=== PATIENT | female | born 1960 | race Caucasian/White ===

== ENCOUNTER 2016-06-04 21:29 | Observation (INO) | payer OTHER ==
[~2016-06-04] VITALS: Ht 165.1 cm; Wt 99.9 kg
--- NOTE | 2016-06-04 22:52 | DIAGNOSTIC IMAGING REPORT ---
PROCEDURE: XR CHEST 1 VIEW INDICATION: CHEST PAIN TECHNIQUE: Portable AP view (2205 hours). COMPARISON: None. FINDINGS: Allowing for overlying wires and electrodes, lungs are clear. Heart and mediastinum are normal. Thorax is normal. IMPRESSION: 1. Negative chest.
--- NOTE | 2016-06-05 00:33 | ED CLINICAL REPORT ---
Clinical Report - Physicians/Mid Levels [facility] [address] [place] [place] [address] 06/04/2016 21:31 Patient: ROJELIO ANDERSON Time Seen: 21:37. Arrived- By ambulance. Historian- patient and EMS personnel. HISTORY OF PRESENT ILLNESS Chief Complaint: PALPITATIONS. This started just prior to arrival and is now gone. Onset during exertion. No history of caffeine use prior to onset, decongestants use prior to onset, cocaine use prior to onset or amphetamine use prior to onset. It was abrupt in onset. It is described as a fast and pounding heart beat. She did not feel like might "pass out". She complains of dizziness. The patient has had chest discomfort, difficulty breathing and dizziness. Treatment TIME BROKER: Pre-hospital treatment by EMS. Treated with adenosine prior to arrival. REVIEW OF SYSTEMS No chills, fever, sweats, pedal edema or constipation. No diarrhea, nausea, vomiting or urinary problems. She has had mild calf pain involving the right leg and left leg (chronically). She has had abdominal pain (chronically - "for 20 years" she has a study scheduled at [place] tomorrow to evaluate gastric emptying). PAST HISTORY PCP - Kennedy at the [facility]. Problems: Adjustment Disorder. Hypertension. Diabetes Mellitus. Acid Reflux. Additional Surgeries: Cholecystectomy. . Cyst removal from breast. Medications: Colestid Oral. [place] Thyroid Oral. Lisinopril Oral. NovoLIN 70/30 Subcutaneous. Omeprazole Oral. Allergies: Codeine. CONTRAST DYE. Penicillins. SOCIAL HISTORY Smoker- current status unknown. No alcohol use or drug use. Is a local resident. FAMILY HISTORY Diabetes in first-degree relative (sibling) and grandparent; migraine headache in first-degree relative (sibling) and grandparent. ADDITIONAL NOTES The nursing notes have been reviewed. PHYSICAL EXAM Vital Signs: 06/04/2016 21:34 BP: 157/76. HR: 89. RR: 16. O2 saturation: 98%. Pain level now: 0/10. Have been reviewed. Appearance: Alert. Eyes: Pupils equal, round and reactive to light. ENT: Pharynx normal. Neck: Normal inspection. Neck supple. CVS: Normal heart rate and rhythm. Heart sounds normal. Respiratory: No respiratory distress. Breath sounds normal. Abdomen: Soft and nontender. Bowel sounds normal. No organomegaly. No mass. Back: Normal external inspection. Extremities: Extremities exhibit normal ROM. No calf tenderness. No lower extremity edema. LABS, X-RAYS, AND EKG Laboratory Tests: CBC w Diff: (LINSEY: 06/05/2016 05:28) ( [facility] 06/05/2016 05:35) Final results Test Result Flag Units (Reference) WHITE BLOOD COUNT 6.1 K/uL (4.5-11.5) RED BLOOD COUNT 3.62 L M/uL (4.00-5.20) HEMOGLOBIN 10.3 L gm/dL (12.0-16.0) HEMATOCRIT 30.9 L % (36.0-46.0) MEAN CELL VOLUME 85 fL (80-100) MEAN CORPUSCULAR HGB 29 pg (26-34) MEAN CORPUSCULAR HGB CONC 33 g/dL (31-37) RED CELL DISTRIBUTION WIDTH 15.1 H % (11.6-14.8) PLATELET COUNT 183 K/uL (150-400) NEUTROPHIL % 58.9 % (50-75) LYMPH % 30.2 % (25-40) MONO % 8.1 % (3-14) EOSINOPHIL % 2.1 % (0-4) BASOPHIL % 0.7 % (0-2) BMP: (LINSEY: 06/05/2016 05:28) ( [facility] [place] 06:24) Final results Test Result Flag Units (Reference) GLUCOSE 123 H mg/dL (70-110) BUN 19 H mg/dL (7-18) CREATININE 0.9 mg/dL (0.6-1.3) Estimated GFR >60 mL/min Estimated GFR- >60 mL/min Note: Persistent reduction over 3 months in eGFR<60 mL/min/1.73 m2 defines CKD. Patients with eGFR values>=60 mL/min/1.73 m2 may also have CKD if evidence ofpersistent proteinuria. Additional information may be foundat www.kidney.org. SODIUM 144 mmol/L (136-145) POTASSIUM 3.7 mmol/L (3.5-5.1) CHLORIDE 111 H mmol/L (98-107) CARBON DIOXIDE 23 mmol/L (21-32) CALCIUM 8.5 mg/dL (8.5-10.1) FREE T4 (FREE THYROXINE) 0.92 ng/dL (0.78-4.13) FREE T3 2.7 L pg/mL (2.91-4.70) UA-Culture if indicated: (LINSEY: 06/04/2016 21:38) ( [facility] 06/04/2016 23:23) Final results Test Result Flag Units (Reference) URINE COLOR YELLOW URINE APPEARANCE CLEAR URINE GLUCOSE NEGATIVE (NEGATIVE) URINE BILIRUBIN NEGATIVE (NEGATIVE) URINE KETONE NEGATIVE (NEGATIVE) URINE SPECIFIC GRAVITY 1.010 (1.010-1.030) URINE PH 7.0 (5.0-8.0) URINE PROTEIN TRACE (NEGATIVE) URINE UROBILINOGEN 0.2 EU/dL (0.2-1.0) URINE NITRITE NEGATIVE (NEGATIVE) URINE BLOOD NEGATIVE (NEGATIVE) URINE LEUK ESTERASE TRACE (NEGATIVE) URINE RBC 0-1 rbc/hpf (0-1) URINE WBC 1-3 wbc/hpf (0-1) URINE EPITHELIAL CELLS 0-1 EPI/hpf (0-5) URINE BACTERIA FEW (1+) (NONE SEEN) URINE COMMENT CULTURE INDICATED URINE CULTURES ARE SET-UP BASED ON THE FOLLOWING CRITERIA:POSITIVE NITRITEPOSITIVE LEUKOCYTE ESTERASEGREATER THAN 10 WHITE BLOOD CELLSMODERATE (2+) OR GREATER BACTERIA CBC w Diff: (LINSEY: 06/04/2016 22:00) ( MsgRcvd 06/04/2016 22:19) Final results Test Result Flag Units (Reference) WHITE BLOOD COUNT 5.6 K/uL (4.5-11.5) RED BLOOD COUNT 4.02 M/uL (4.00-5.20) HEMOGLOBIN 11.4 L gm/dL (12.0-16.0) HEMATOCRIT 34.2 L % (36.0-46.0) MEAN CELL VOLUME 85 fL (80-100) MEAN CORPUSCULAR HGB 28 pg (26-34) MEAN CORPUSCULAR HGB CONC 33 g/dL (31-37) RED CELL DISTRIBUTION WIDTH 15.0 H % (11.6-14.8) PLATELET COUNT 184 K/uL (150-400) NEUTROPHIL % 69.5 % (50-75) LYMPH % 22.7 L % (25-40) MONO % 5.7 % (3-14) EOSINOPHIL % 1.4 % (0-4) BASOPHIL % 0.7 % (0-2) PT with INR: (LINSEY: 06/04/2016 22:00) ( [facility] 06/04/2016 22:35) Final results Test Result Flag Units (Reference) INR 0.9 (0.8-1.2) Low Intensity Therapy: INR 1.5-2.0 PT range 18.5-23.1Mod.Intensity Therapy: INR 2.0-3.0 PT range 23.1-31.5High Intensity Therapy: INR 2.5-3.5 PT range 27.4-35.5High Intensity Therapy 2: INR 3.0-4.0 PT range 31.5-39.3 APTT 27 SECONDS (24-34) D-DIMER QUANTITATIVE 0.74 H ug/mLFEU (0.27-0.52) The primary value of this quantitative assay relates toits negative predictive value (i.e. exclusion) of pulmonaryembolism/deep vein thrombosis/DIC.Elevated levels of d-dimer may also occur with:, age, cancer, inflammation, liver disease,post-op, infection, hematoma, coronary disease, peripheralarteriopathy, bleeding disorders and thrombolytic treatment.Results should be correlated with other clinical andradiological data.Testing Methodology: Latex Immunoassay TSH: (LINSEY: 06/04/2016 22:53) ( [facility] 06/04/2016 23:15) Final results Test Result Flag Units (Reference) THYROID STIMULATING HORMONE 0.183 L uIU/mL (0.30-3.74) BNP: (LINSEY: 06/04/2016 22:00) ( [facility] [place]04[place] 22:41) Final results Test Result Flag Units (Reference) B-TYPE NATRIURETIC PEPTIDE 80.8 pg/ml (5-100) CMP: (LINSEY: 06/04/2016 22:00) ( MsgRcvd 06/04/2016 22:34) Final results Test Result Flag Units (Reference) GLUCOSE 202 H mg/dL (70-110) BUN 24 H mg/dL (7-18) CREATININE 1.1 mg/dL (0.6-1.3) Estimated GFR 54.22 mL/min Estimated GFR- >60 mL/min Note: Persistent reduction over 3 months in eGFR<60 mL/min/1.73 m2 defines CKD. Patients with eGFR values>=60 mL/min/1.73 m2 may also have CKD if evidence ofpersistent proteinuria. Additional information may be foundat www.kidney.org. SODIUM 142 mmol/L (136-145) POTASSIUM 3.7 mmol/L (3.5-5.1) CHLORIDE 107 mmol/L (98-107) CARBON DIOXIDE 24 mmol/L (21-32) CALCIUM 8.8 mg/dL (8.5-10.1) TOTAL PROTEIN 7.7 g/dL (6.4-8.2) ALBUMIN 3.5 g/dL (3.3-5.0) BILIRUBIN, TOTAL 0.3 mg/dL (0.0-1.0) ALKALINE PHOSPHATASE 96 U/L (46-116) AST (SGOT) 24 U/L (15-37) ALT (SGPT) 31 U/L (12-78) LIPASE 148 U/L (73-393) AMYLASE 43 U/L (25-115) CPK 112 U/L (24-260) TROPONIN I <0.05 ng/mL (0.00-1.5) TROPONIN REFERENCE RANGE:<0.1 NEGATIVE0.1-1.5 INDETERMINANT>1.5 POSITIVE . PROGRESS AND PROCEDURES Course of Care: given the patient's allergy to contrast dye and elevated d-dimer. We will bring her in for observation and obtain a VQ scan in the morning. Discussed case with on-call health care provider, (Mike). Reviewed test results and need for additional work-up. Agreed upon treatment plan and decision to place in observation. Consult obtained. Dr. Martin. Case discussed. Phone consult only. Patient/family counseled. Old medical records ordered. Disposition: Admitted. Observation. CLINICAL IMPRESSION Paroxysmal supraventricular tachycardia. Abnormal tests: (elevated d-dimer). Hypothyroidism (with apparent supratherapeutic dosing of her [place] thyroid). (Electronically signed by Joseph Chapin MD 06/05/2016 8:36)
--- NOTE | 2016-06-05 00:33 | ED NURSING NOTES ---
Clinical Report - Nurses [facility] [address] [place] [address] 06/04/2016 21:31 Patient: ROJELIO ANDERSON TRIAGE Triage time 21:34. Acuity: LEVEL 2. Chief Complaint: CHEST PAIN. Alert. --21:42 Janet Mirza R.N. 21:34 06/04/16. BP: 157/76. HR: 89. RR: 16. O2 saturation: 98% on room air. Pain level now: 0/10. --21:42 Janet Mirza R.N. Weight: 95.7 kg stated. Height/Length: 65 inches Per Patient. BMI: 35.2. --21:40 Janet Mirza R.N. Medications Lisinopril Oral. NovoLIN 70/30 Subcutaneous. Omeprazole Oral. --21:40 Janet Mirza R.N. [place] Thyroid Oral. --21:40 Janet Mirza R.N. Colestid Oral. --21:41 Janet Mirza R.N. Allergies Codeine. Penicillins. --21:40 Janet Mirza R.N. History Arrived by EMS. Historian: patient. Primary physician (Kennedy ([facility])). SOCIAL HX: Never smoker. No alcohol use or drug use. NUTRITIONAL RISK ASSESSMENT: The nutritional risk assessment revealed no deficiencies. FUNCTIONAL ASSESSMENT: Functional assessment: no impairments noted. --21:42 Janet Mirza R.N. PROBLEMS: Adjustment Disorder. Hypertension. Diabetes Mellitus. Acid Reflux. --21:41 Janet Mirza R.N. ADDITIONAL SURGERIES: Cholecystectomy. . Cyst removal from breast. --21:41 Janet Mirza R.N. Interventions ID band on patient. To treatment room. --21:42 Janet Mirza R.N. PHYSICAL ASSESSMENT To room via stretcher. Patient gowned. GENERAL / NEURO / PSYCH: Alert. Oriented X 4. Appears anxious. HEENT: Mucous membranes are pink. RESPIRATORY: Respirations not labored. CVS: Capillary refill less than 2 seconds. SKIN: Skin is warm and dry. --21:42 Janet Mirza R.N. NURSING PROGRESS NOTES Head of bed elevated. Two patient identifiers checked. Call light placed in reach. Side rails up x 2. Bed placed in lowest position. Brakes of bed on. --21:42 Janet Mirza R.N. bacteriologist fishery, pulse oximeter and NIBP monitor placed on patient; monitor alarms on. --21:43 Janet Mirza R.N. Patient ready for evaluation- chart flagged. --21:43 Janet Mirza R.N. 21:45 06/04/2016 Site #1 started prior to arrival by EMS via IV in the right antecubital space with an 20g angiocath (started DOUBLE END SEWER. 1000ml NS hanging upon arrival to ED, aprox 250ml infused upon arrival. infusion stopped until further orders from EDMD.). --21:46 Janet Mirza R.N. EKG time: (2146 PM). EKG was ordered, performed by a tech and shown to the ED physician. --21:52 Misty Will 21:40 06/04/2016 Aspirin PO Tablets 325 mg given. Allergies verified and confirmed 5 rights. --22:48 Janet Mirza R.N. 22:51 06/04/16. BP: 150/66. HR: 85. RR: 15. O2 saturation: 100% on nasal cannula at 2 liters/minute. Alan-Overton pain scale: 4/10. --22:51 Janet Mirza R.N. Patient ID band checked for patient name and birthdate: patient confirmed. Clean catch urine collected with return of yellow-colored clear urine; sample sent to lab. Specimen labeled in the presence of the patient. --23:11 Janet Mirza R.N. 01:45 06/05/16. BP: 151/67 taken on the right arm, while sitting. HR: 66. RR: 16. O2 saturation: 100%. Temp: 98.2 F (oral). --01:53 Misty Will Finger stick glucose: 0300: 127 mg/dL; performed by [facility]. --03:01 Misty Will 03:05 06/05/16. BP: 134/61. HR: 72. RR: 16. O2 saturation: 100%. Pain level now: 0/10. --03:05 Janet Mirza R.N. 03:21 06/05/2016 Lovenox (Enoxaparin Sodium) Subcutaneous 100 mg given. Given in the right abdomen. Allergies verified and confirmed 5 rights. --03:24 Janet Mirza R.N. 04:10- STOP time for protonix. --04:12 Janet Mirza R.N. DISPOSITION / DISCHARGE Report was given to a nurse via a phone call. Report included patient's care, treatment, medications, reviewed medication reconcilliation, and condition (including any recent changes or anticipated changes). All questions were answered. (To WINSOME Pascual). --03:41 Janet Mirza R.N. 03:42 06/05/16. BP: 157/69. HR: 68. RR: 15. O2 saturation: 100%. Pain level now: 0/10. --03:42 Janet Mirza R.N. 03:43 06/05/2016 Site #[address] upon admission. Flushed with 10 mL saline. --03:43 Janet Mirza R.N. 03:55 06/05/2016 PROTONIX 40MG (Pantoprazole Sodium) IVP 40 mg given diluted in NS 50mL over 15 minute(s) via site #1. Allergies verified and confirmed 5 rights. IV patency established. IV site checked: no pain, redness, or swelling. IV flushed thoroughly pre- and post-medication administration. IVP given by RN. --03:55 Janet Mirza R.N. Transported via wheelchair by nurse with IV. --04:13 Janet Mirza R.N. Departure time: 04:13. --04:13 Janet Mirza R.N. Locked/Released at 06/05/2016 4:47 by Janet Mirza R.N.
--- NOTE | 2016-06-05 00:33 | ED ORDER SUMMARY ---
..... Patient: ROJELIO ANDERSON OrderSheet [facility] VisitID: [id number] [address] [place] [address] 56y, F Registration Date/Time: 06/04/2016 ORDER SHEET Weight: 95.7 kg (stated) Allergies: Codeine, Penicillins, CONTRAST DYE GENERAL ORDERS: Chest 1V Urgent (21:37 06/04/2016 Gi BENÍTEZ) (Ack 21:40 CHaggiuliana ER Clinical Research Administrator) (22:08 MCampbell) Therapist Speech (Continuous) (21:37 06/04/2016 Gi BENÍTEZ) (21:43 RCollier R.N.) CBC w Diff Urgent (21:38 06/04/2016 Gi BENÍTEZ) (Ack 21:40 CHaggiuliana ER Clinical Research Administrator) (22:47 RCollier R.N.) CMP Urgent (21:38 06/04/2016 Gi BENÍTEZ) (Ack 21:40 Moshe ER Clinical Research Administrator) (22:47 RCollier R.N.) UA-Culture if indicated Urgent (21:38 06/04/2016 Gi BENÍTEZ) (Ack 21:40 Moshe ER Clinical Research Administrator) (23:11 RCollier R.N.) PT with INR Urgent (21:38 06/04/2016 iG BENÍTEZ) (Ack 21:40 Moshe ER Clinical Research Administrator) (22:47 RCollier R.N.) PTT Urgent (21:38 06/04/2016 Gi BENÍTEZ) (Ack 21:40 CHaggiuliana ER Clinical Research Administrator) (22:47 RCollier R.N.) D-Dimer Urgent (21:38 06/04/2016 Gi BENÍTEZ) (Ack 21:40 Moshe ER Clinical Research Administrator) (22:47 RCollier R.N.) Lipase Urgent (21:38 06/04/2016 Gi BENÍTEZ) (Ack 21:40 Moshe ER Clinical Research Administrator) (22:48 RCollier R.N.) Amylase Urgent (21:38 06/04/2016 Gi BENÍTEZ) (Ack 21:40 CHaggiuliana ER Clinical Research Administrator) (22:48 RCollier R.N.) CPK Urgent (21:38 06/04/2016 Gi BENÍTEZ) (Ack 21:40 Moshe ER Clinical Research Administrator) (22:48 RCollier R.N.) Troponin-I Urgent (21:38 06/04/2016 Gi BENÍTEZ) (Ack 21:40 Moshe ER Clinical Research Administrator) (22:48 RCollier R.N.) BNP Urgent (21:38 06/04/2016 Gi BENÍTEZ) (Ack 21:40 Moshe ER Clinical Research Administrator) (22:48 RCollier R.N.) Oxygen (2 L/min) (NC) (21:38 06/04/2016 Gi BENÍTEZ) (21:43 RCollier R.N.) Pulse oximeter (21:38 06/04/2016 Gi BENÍTEZ) (21:43 RCollier R.N.) EKG - ER Stat (21:38 06/04/2016 Gi BENÍTEZ) (Ack 21:40 Moshe ER Clinical Research Administrator) (21:43 RCollier R.N.) TSH Urgent (22:43 06/04/2016 Gi BENÍTEZ) (Ack 22:47 Moshe ER Clinical Research Administrator) (22:48 RCollier R.N.) MEDICATION ORDERS: Aspirin PO 325 mg (NOW) (21:37 06/04/2016 Gi BENÍTEZ) (Ack 21:43 RCollier R.N.) (22:48 RCollier R.N.) Lovenox Subcut 1 mg/kg (HIGH ALERT MEDICATION, NOW) (03:11 06/05/2016 Gi BENÍTEZ) (Ack 3:14 RCollier R.N.) (3:24 RCollier R.N.) Pepcid PO 20 mg (NOW) (03:45 06/05/2016 RCollier R.N. verbal order read back to Gi BENÍTEZ) (Ack 3:45 RCollier R.N.) (Cancelled: Other3:46 Gi BENÍTEZ) IV FLUIDS: IV Saline Lock (21:38 06/04/2016 Gi BENÍTEZ) (Ack 21:43 RCollier R.N.) Protonix IVP 40mg 40 mg (Mix in NS 10ml over 2min) (03:46 06/05/2016 Gi BENÍTEZ) (3:55 RCollier R.N.) ORDER SHEET NOTES: [Electronically signed by Janet Mirza R.N. (04:47 06/05/2016)] [Electronically signed by Joseph Chapin MD (08:36 06/05/2016)] [Electronically locked/signed by Janet Mirza R.N. (04:47 06/05/2016)]
--- NOTE | 2016-06-05 00:33 | ED NURSING NOTES ---
Clinical Report - Nurses [facility] [address] [place] [address] 06/04/2016 21:31 Patient: ROJELIO ANDERSON TRIAGE Triage time 21:34. Acuity: LEVEL 2. Chief Complaint: CHEST PAIN. Alert. --21:42 Janet Mirza R.N. 21:34 06/04/16. BP: 157/76. HR: 89. RR: 16. O2 saturation: 98% on room air. Pain level now: 0/10. --21:42 Janet Mirza R.N. Weight: 95.7 kg stated. Height/Length: 65 inches Per Patient. BMI: 35.2. --21:40 Janet Mirza R.N. Medications Lisinopril Oral. NovoLIN 70/30 Subcutaneous. Omeprazole Oral. --21:40 Janet Mirza R.N. [place] Thyroid Oral. --21:40 Janet Mirza R.N. Colestid Oral. --21:41 Janet Mirza R.N. Allergies Codeine. Penicillins. --21:40 Jante Mirza R.N. History Arrived by EMS. Historian: patient. Primary physician (Kennedy ([facility])). SOCIAL HX: Never smoker. No alcohol use or drug use. NUTRITIONAL RISK ASSESSMENT: The nutritional risk assessment revealed no deficiencies. FUNCTIONAL ASSESSMENT: Functional assessment: no impairments noted. --21:42 Janet Mirza R.N. PROBLEMS: Adjustment Disorder. Hypertension. Diabetes Mellitus. Acid Reflux. --21:41 Janet Mirza R.N. ADDITIONAL SURGERIES: Cholecystectomy. . Cyst removal from breast. --21:41 Janet Mirza R.N. Interventions ID band on patient. To treatment room. --21:42 Janet Mirza R.N. PHYSICAL ASSESSMENT To room via stretcher. Patient gowned. GENERAL / NEURO / PSYCH: Alert. Oriented X 4. Appears anxious. HEENT: Mucous membranes are pink. RESPIRATORY: Respirations not labored. CVS: Capillary refill less than 2 seconds. SKIN: Skin is warm and dry. --21:42 Janet Mirza R.N. NURSING PROGRESS NOTES Head of bed elevated. Two patient identifiers checked. Call light placed in reach. Side rails up x 2. Bed placed in lowest position. Brakes of bed on. --21:42 Janet Mirza R.N. sock boarder, pulse oximeter and NIBP monitor placed on patient; monitor alarms on. --21:43 Janet Mirza R.N. Patient ready for evaluation- chart flagged. --21:43 Janet Mirza R.N. 21:45 06/04/2016 Site #1 started prior to arrival by EMS via IV in the right antecubital space with an 20g angiocath (started RETAIL CLERK. 1000ml NS hanging upon arrival to ED, aprox 250ml infused upon arrival. infusion stopped until further orders from EDMD.). --21:46 Janet Mirza R.N. EKG time: (2146 PM). EKG was ordered, performed by a tech and shown to the ED physician. --21:52 Misty Will 21:40 06/04/2016 Aspirin PO Tablets 325 mg given. Allergies verified and confirmed 5 rights. --22:48 Janet Mirza R.N. 22:51 06/04/16. BP: 150/66. HR: 85. RR: 15. O2 saturation: 100% on nasal cannula at 2 liters/minute. Alan-Overton pain scale: 4/10. --22:51 Janet Mirza R.N. Patient ID band checked for patient name and birthdate: patient confirmed. Clean catch urine collected with return of yellow-colored clear urine; sample sent to lab. Specimen labeled in the presence of the patient. --23:11 Janet Mirza R.N. 01:45 06/05/16. BP: 151/67 taken on the right arm, while sitting. HR: 66. RR: 16. O2 saturation: 100%. Temp: 98.2 F (oral). --01:53 Misty Will Finger stick glucose: 0300: 127 mg/dL; performed by [facility]. --03:01 Misty Will 03:05 06/05/16. BP: 134/61. HR: 72. RR: 16. O2 saturation: 100%. Pain level now: 0/10. --03:05 Janet Mirza R.N. 03:21 06/05/2016 Lovenox (Enoxaparin Sodium) Subcutaneous 100 mg given. Given in the right abdomen. Allergies verified and confirmed 5 rights. --03:24 Janet Mirza R.N. 04:10- STOP time for protonix. --04:12 Janet Mirza R.N. DISPOSITION / DISCHARGE Report was given to a nurse via a phone call. Report included patient's care, treatment, medications, reviewed medication reconcilliation, and condition (including any recent changes or anticipated changes). All questions were answered. (To WINSOME Pascual). --03:41 Janet Mirza R.N. 03:42 06/05/16. BP: 157/69. HR: 68. RR: 15. O2 saturation: 100%. Pain level now: 0/10. --03:42 Janet Mirza R.N. 03:43 06/05/2016 Site #[address] upon admission. Flushed with 10 mL saline. --03:43 Janet Mirza R.N. 03:55 06/05/2016 PROTONIX 40MG (Pantoprazole Sodium) IVP 40 mg given diluted in NS 50mL over 15 minute(s) via site #1. Allergies verified and confirmed 5 rights. IV patency established. IV site checked: no pain, redness, or swelling. IV flushed thoroughly pre- and post-medication administration. IVP given by RN. --03:55 Janet Mirza R.N. Transported via wheelchair by nurse with IV. --04:13 Janet Mirza R.N. Departure time: 04:13. --04:13 Janet Mirza R.N. Locked/Released at 06/05/2016 4:47 by Janet Mirza R.N.
--- NOTE | 2016-06-05 00:33 | ED ORDER SUMMARY ---
..... Patient: ROJELIO ANDERSON OrderSheet [facility] VisitID: [id number] [address] [place] [address] 56y, F Registration Date/Time: 06/04/2016 ORDER SHEET Weight: 95.7 kg (stated) Allergies: Codeine, Penicillins, CONTRAST DYE GENERAL ORDERS: Chest 1V Urgent (21:37 06/04/2016 Gi BENÍTEZ) (Ack 21:40 CHaggiuliana ER Pharmacy Salesperson) (22:08 MCampbell) Plant Health Manager (Continuous) (21:37 06/04/2016 Gi BENÍTEZ) (21:43 RCollier R.N.) CBC w Diff Urgent (21:38 06/04/2016 Gi BENÍTEZ) (Ack 21:40 CHaggiuliana ER Pharmacy Salesperson) (22:47 RCollier R.N.) CMP Urgent (21:38 06/04/2016 Gi BENÍTEZ) (Ack 21:40 Moshe ER Pharmacy Salesperson) (22:47 RCollier R.N.) UA-Culture if indicated Urgent (21:38 06/04/2016 Gi BENÍTEZ) (Ack 21:40 Moshe ER Pharmacy Salesperson) (23:11 RCollier R.N.) PT with INR Urgent (21:38 06/04/2016 Gi BENÍTEZ) (Ack 21:40 Moshe ER Pharmacy Salesperson) (22:47 RCollier R.N.) PTT Urgent (21:38 06/04/2016 Gi BENÍTEZ) (Ack 21:40 CHaggiuliana ER Pharmacy Salesperson) (22:47 RCollier R.N.) D-Dimer Urgent (21:38 06/04/2016 Gi BENÍTEZ) (Ack 21:40 Moshe ER Pharmacy Salesperson) (22:47 RCollier R.N.) Lipase Urgent (21:38 06/04/2016 Gi BENÍTEZ) (Ack 21:40 Moshe ER Pharmacy Salesperson) (22:48 RCollier R.N.) Amylase Urgent (21:38 06/04/2016 Gi BENÍTEZ) (Ack 21:40 CHaggiuliana ER Pharmacy Salesperson) (22:48 RCollier R.N.) CPK Urgent (21:38 06/04/2016 Gi BENÍTEZ) (Ack 21:40 Moshe ER Pharmacy Salesperson) (22:48 RCollier R.N.) Troponin-I Urgent (21:38 06/04/2016 Gi BENÍTEZ) (Ack 21:40 Moshe ER Pharmacy Salesperson) (22:48 RCollier R.N.) BNP Urgent (21:38 06/04/2016 Gi BENÍTEZ) (Ack 21:40 Moshe ER Pharmacy Salesperson) (22:48 RCollier R.N.) Oxygen (2 L/min) (NC) (21:38 06/04/2016 Gi BENÍTEZ) (21:43 RCollier R.N.) Pulse oximeter (21:38 06/04/2016 Gi BENÍTEZ) (21:43 RCollier R.N.) EKG - ER Stat (21:38 06/04/2016 Gi BENÍTEZ) (Ack 21:40 Moshe ER Pharmacy Salesperson) (21:43 RCollier R.N.) TSH Urgent (22:43 06/04/2016 Gi BENÍTEZ) (Ack 22:47 Moshe ER Pharmacy Salesperson) (22:48 RCollier R.N.) MEDICATION ORDERS: Aspirin PO 325 mg (NOW) (21:37 06/04/2016 Gi BENÍTEZ) (Ack 21:43 RCollier R.N.) (22:48 RCollier R.N.) Lovenox Subcut 1 mg/kg (HIGH ALERT MEDICATION, NOW) (03:11 06/05/2016 Gi BENÍTEZ) (Ack 3:14 RCollier R.N.) (3:24 RCollier R.N.) Pepcid PO 20 mg (NOW) (03:45 06/05/2016 RCollier R.N. verbal order read back to Gi BENÍTEZ) (Ack 3:45 RCollier R.N.) (Cancelled: Other3:46 Gi BENÍTEZ) IV FLUIDS: IV Saline Lock (21:38 06/04/2016 Gi BENÍTEZ) (Ack 21:43 RCollier R.N.) Protonix IVP 40mg 40 mg (Mix in NS 10ml over 2min) (03:46 06/05/2016 Gi BENÍTEZ) (3:55 RCollier R.N.) ORDER SHEET NOTES: [Electronically signed by Janet Mirza R.N. (04:47 06/05/2016)] [Electronically signed by Joseph Chapin MD (08:36 06/05/2016)] [Electronically locked/signed by Janet Mirza R.N. (04:47 06/05/2016)]
--- NOTE | 2016-06-05 00:33 | ED CLINICAL REPORT ---
Clinical Report - Physicians/Mid Levels [facility] [address] [place] [address] 06/04/2016 21:31 Patient: ROJELIO ANDERSON Time Seen: 21:37. Arrived- By ambulance. Historian- patient and EMS personnel. HISTORY OF PRESENT ILLNESS Chief Complaint: PALPITATIONS. This started just prior to arrival and is now gone. Onset during exertion. No history of caffeine use prior to onset, decongestants use prior to onset, cocaine use prior to onset or amphetamine use prior to onset. It was abrupt in onset. It is described as a fast and pounding heart beat. She did not feel like might "pass out". She complains of dizziness. The patient has had chest discomfort, difficulty breathing and dizziness. Treatment BASKETBALL REFEREE: Pre-hospital treatment by EMS. Treated with adenosine prior to arrival. REVIEW OF SYSTEMS No chills, fever, sweats, pedal edema or constipation. No diarrhea, nausea, vomiting or urinary problems. She has had mild calf pain involving the right leg and left leg (chronically). She has had abdominal pain (chronically - "for 20 years" she has a study scheduled at [place] tomorrow to evaluate gastric emptying). PAST HISTORY PCP - Kennedy at the [facility] [facility]. Problems: Adjustment Disorder. Hypertension. Diabetes Mellitus. Acid Reflux. Additional Surgeries: Cholecystectomy. . Cyst removal from breast. Medications: Colestid Oral. [place] Thyroid Oral. Lisinopril Oral. NovoLIN 70/30 Subcutaneous. Omeprazole Oral. Allergies: Codeine. CONTRAST DYE. Penicillins. SOCIAL HISTORY Smoker- current status unknown. No alcohol use or drug use. Is a local resident. FAMILY HISTORY Diabetes in first-degree relative (sibling) and grandparent; migraine headache in first-degree relative (sibling) and grandparent. ADDITIONAL NOTES The nursing notes have been reviewed. PHYSICAL EXAM Vital Signs: 06/04/2016 21:34 BP: 157/76. HR: 89. RR: 16. O2 saturation: 98%. Pain level now: 0/10. Have been reviewed. Appearance: Alert. Eyes: Pupils equal, round and reactive to light. ENT: Pharynx normal. Neck: Normal inspection. Neck supple. CVS: Normal heart rate and rhythm. Heart sounds normal. Respiratory: No respiratory distress. Breath sounds normal. Abdomen: Soft and nontender. Bowel sounds normal. No organomegaly. No mass. Back: Normal external inspection. Extremities: Extremities exhibit normal ROM. No calf tenderness. No lower extremity edema. LABS, X-RAYS, AND EKG Laboratory Tests: CBC w Diff: (LINSEY: 06/05/2016 05:28) ( [facility] [place] 06/05/2016 05:35) Final results Test Result Flag Units (Reference) WHITE BLOOD COUNT 6.1 K/uL (4.5-11.5) RED BLOOD COUNT 3.62 L M/uL (4.00-5.20) HEMOGLOBIN 10.3 L gm/dL (12.0-16.0) HEMATOCRIT 30.9 L % (36.0-46.0) MEAN CELL VOLUME 85 fL (80-100) MEAN CORPUSCULAR HGB 29 pg (26-34) MEAN CORPUSCULAR HGB CONC 33 g/dL (31-37) RED CELL DISTRIBUTION WIDTH 15.1 H % (11.6-14.8) PLATELET COUNT 183 K/uL (150-400) NEUTROPHIL % 58.9 % (50-75) LYMPH % 30.2 % (25-40) MONO % 8.1 % (3-14) EOSINOPHIL % 2.1 % (0-4) BASOPHIL % 0.7 % (0-2) BMP: (LINSEY: 06/05/2016 05:28) ( [facility] Final results Test Result Flag Units (Reference) GLUCOSE 123 H mg/dL (70-110) BUN 19 H mg/dL (7-18) CREATININE 0.9 mg/dL (0.6-1.3) Estimated GFR >60 mL/min Estimated GFR- >60 mL/min Note: Persistent reduction over 3 months in eGFR<60 mL/min/1.73 m2 defines CKD. Patients with eGFR values>=60 mL/min/1.73 m2 may also have CKD if evidence ofpersistent proteinuria. Additional information may be foundat www.kidney.org. SODIUM 144 mmol/L (136-145) POTASSIUM 3.7 mmol/L (3.5-5.1) CHLORIDE 111 H mmol/L (98-107) CARBON DIOXIDE 23 mmol/L (21-32) CALCIUM 8.5 mg/dL (8.5-10.1) FREE T4 (FREE THYROXINE) 0.92 ng/dL (0.78-4.13) FREE T3 2.7 L pg/mL (2.91-4.70) UA-Culture if indicated: (LINSEY: 06/04/2016 21:38) ( MsgRcvd 06/04/2016 23:23) Final results Test Result Flag Units (Reference) URINE COLOR YELLOW URINE APPEARANCE CLEAR URINE GLUCOSE NEGATIVE (NEGATIVE) URINE BILIRUBIN NEGATIVE (NEGATIVE) URINE KETONE NEGATIVE (NEGATIVE) URINE SPECIFIC GRAVITY 1.010 (1.010-1.030) URINE PH 7.0 (5.0-8.0) URINE PROTEIN TRACE (NEGATIVE) URINE UROBILINOGEN 0.2 EU/dL (0.2-1.0) URINE NITRITE NEGATIVE (NEGATIVE) URINE BLOOD NEGATIVE (NEGATIVE) URINE LEUK ESTERASE TRACE (NEGATIVE) URINE RBC 0-1 rbc/hpf (0-1) URINE WBC 1-3 wbc/hpf (0-1) URINE EPITHELIAL CELLS 0-1 EPI/hpf (0-5) URINE BACTERIA FEW (1+) (NONE SEEN) URINE COMMENT CULTURE INDICATED URINE CULTURES ARE SET-UP BASED ON THE FOLLOWING CRITERIA:POSITIVE NITRITEPOSITIVE LEUKOCYTE ESTERASEGREATER THAN 10 WHITE BLOOD CELLSMODERATE (2+) OR GREATER BACTERIA CBC w Diff: (LINSEY: 06/04/2016 22:00) ( MsgRcvd 06/04/2016 22:19) Final results Test Result Flag Units (Reference) WHITE BLOOD COUNT 5.6 K/uL (4.5-11.5) RED BLOOD COUNT 4.02 M/uL (4.00-5.20) HEMOGLOBIN 11.4 L gm/dL (12.0-16.0) HEMATOCRIT 34.2 L % (36.0-46.0) MEAN CELL VOLUME 85 fL (80-100) MEAN CORPUSCULAR HGB 28 pg (26-34) MEAN CORPUSCULAR HGB CONC 33 g/dL (31-37) RED CELL DISTRIBUTION WIDTH 15.0 H % (11.6-14.8) PLATELET COUNT 184 K/uL (150-400) NEUTROPHIL % 69.5 % (50-75) LYMPH % 22.7 L % (25-40) MONO % 5.7 % (3-14) EOSINOPHIL % 1.4 % (0-4) BASOPHIL % 0.7 % (0-2) PT with INR: (LINSEY: 06/04/2016 22:00) ( [facility] 06/04/2016 22:35) Final results Test Result Flag Units (Reference) INR 0.9 (0.8-1.2) Low Intensity Therapy: INR 1.5-2.0 PT range 18.5-23.1Mod.Intensity Therapy: INR 2.0-3.0 PT range 23.1-31.5High Intensity Therapy: INR 2.5-3.5 PT range 27.4-35.5High Intensity Therapy 2: INR 3.0-4.0 PT range 31.5-39.3 APTT 27 SECONDS (24-34) D-DIMER QUANTITATIVE 0.74 H ug/mLFEU (0.27-0.52) The primary value of this quantitative assay relates toits negative predictive value (i.e. exclusion) of pulmonaryembolism/deep vein thrombosis/DIC.Elevated levels of d-dimer may also occur with:, age, cancer, inflammation, liver disease,post-op, infection, hematoma, coronary disease, peripheralarteriopathy, bleeding disorders and thrombolytic treatment.Results should be correlated with other clinical andradiological data.Testing Methodology: Latex Immunoassay TSH: (LINSEY: 06/04/2016 22:53) ( [facility] 06/04/2016 23:15) Final results Test Result Flag Units (Reference) THYROID STIMULATING HORMONE 0.183 L uIU/mL (0.30-3.74) BNP: (LINSEY: 06/04/2016 22:00) ( [facility] Final results Test Result Flag Units (Reference) B-TYPE NATRIURETIC PEPTIDE 80.8 pg/ml (5-100) CMP: (LINSEY: 06/04/2016 22:00) ( MsgRcvd 06/04/2016 22:34) Final results Test Result Flag Units (Reference) GLUCOSE 202 H mg/dL (70-110) BUN 24 H mg/dL (7-18) CREATININE 1.1 mg/dL (0.6-1.3) Estimated GFR 54.22 mL/min Estimated GFR- >60 mL/min Note: Persistent reduction over 3 months in eGFR<60 mL/min/1.73 m2 defines CKD. Patients with eGFR values>=60 mL/min/1.73 m2 may also have CKD if evidence ofpersistent proteinuria. Additional information may be foundat [email or web address]. SODIUM 142 mmol/L (136-145) POTASSIUM 3.7 mmol/L (3.5-5.1) CHLORIDE 107 mmol/L (98-107) CARBON DIOXIDE 24 mmol/L (21-32) CALCIUM 8.8 mg/dL (8.5-10.1) TOTAL PROTEIN 7.7 g/dL (6.4-8.2) ALBUMIN 3.5 g/dL (3.3-5.0) BILIRUBIN, TOTAL 0.3 mg/dL (0.0-1.0) ALKALINE PHOSPHATASE 96 U/L (46-116) AST (SGOT) 24 U/L (15-37) ALT (SGPT) 31 U/L (12-78) LIPASE 148 U/L (73-393) AMYLASE 43 U/L (25-115) CPK 112 U/L (24-260) TROPONIN I <0.05 ng/mL (0.00-1.5) TROPONIN REFERENCE RANGE:<0.1 NEGATIVE0.1-1.5 INDETERMINANT>1.5 POSITIVE . PROGRESS AND PROCEDURES Course of Care: given the patient's allergy to contrast dye and elevated d-dimer. We will bring her in for observation and obtain a VQ scan in the morning. Discussed case with on-call health care provider, (Mike). Reviewed test results and need for additional work-up. Agreed upon treatment plan and decision to place in observation. Consult obtained. Dr. Martin. Case discussed. Phone consult only. Patient/family counseled. Old medical records ordered. Disposition: Admitted. Observation. CLINICAL IMPRESSION Paroxysmal supraventricular tachycardia. Abnormal tests: (elevated d-dimer). Hypothyroidism (with apparent supratherapeutic dosing of her [place] thyroid). (Electronically signed by Joseph Chapin MD 06/05/2016 8:36)
--- NOTE | 2016-06-05 03:37 | HISTORY AND PHYSICAL ---
ADMITTED: 06/05/2016 PRIMARY CARE PHYSICIAN: Janae Medina MD CHIEF COMPLAINT: 1. Palpitations, chest pain HISTORY OF PRESENT ILLNESS: This is a 56-year-old female with history of type 2 diabetes, hypertension, hypothyroidism and GERD, presenting to the emergency department via EMS with complaints of palpitation and chest pain. The patient states that in the middle of the night she had racing heart, had gotten up and gotten something to drink, walked around and it seemed to resolve on its own. She has had several of these episodes previously; however, they felt very different than the one she had late this evening. The patient again woke up and had very sudden onset of severe palpitations and chest pain associated with shortness of breath, an ambulance was called and the ambulance had found her to in SVT at 235 beats per minute. They gave adenosine 12 mg and it put her into a sinus rhythm at a normal rate. The patient was then transferred to the emergency department. MEDICAL/SURGICAL HISTORY: Past medical history: Type 2 diabetes, hypertension, hypothyroidism, GERD. She has had a , open cholecystectomy, and a breast biopsy. MEDICATIONS: 1. Lisinopril 10 mg p.o. daily. 2. [place] thyroid 90 mcg p.o. daily. 3. Novolin 70/30, 15 units subcutaneous b.i.d. 4. Omeprazole 20 mg p.o. b.i.d. p.r.n. 5. Colace. 6. Mag Citrate. 7. Bisphosphonates. 8. Vitamin B, C, D and E. 9. Enzymes. 10. Aloe Vera juice. 11. DGL. 12. Tums. ALLERGIES: 1. CODEINE. 2. PENICILLIN. SOCIAL HISTORY: The patient is . She denies any alcohol or drug use. She quit smoking in 2009 after smoking for approximately 20 years at a rate of 1 pack per day. FAMILY HISTORY: Brother and grandmother with stomach cancer. Grandmother with colon polyps. Uncle with Crohn disease. Daughter with endometriosis and diabetes, and another brother and grandmother with type 2 diabetes. REVIEW OF SYSTEMS: A full 12-point review of systems was negative except as per HPI, and chronic blurry vision, a chronic cough, which she attributes to her lisinopril, chronic intermittent abdominal pain with diarrhea and constipation, nausea and vomiting, chronic nocturia and chronic leg cramps. PHYSICAL EXAMINATION: VITAL SIGNS: Blood pressure is 140/64, pulse is 77, respiration rate is 16, O2 saturation is 99% on room air. GENERAL: This is a healthy-appearing female sitting in bed in no apparent distress. HEENT: Head is atraumatic, normocephalic. Pupils are equal, round, and reactive to light with accommodation bilaterally. Extraocular muscles are intact bilaterally. Tympanic membranes are nonerythematous without exudates with cones of light bilaterally. Oropharynx is nonerythematous without exudates and moist. Trachea is midline. NECK: There is no JVD. HEART: S1, S2, regular rate and rhythm. No S3, S4, murmurs, gallops, or rubs. LUNGS: Clear to auscultation bilaterally. ABDOMEN: Soft, nontender, nondistended without hepatosplenomegaly or masses. Bowel sounds are active. EXTREMITIES: There is no peripheral edema. LAB/IMAGING: Laboratories: Sodium is 142, potassium 3.7, chloride 107, bicarb 24, BUN of 24, creatinine of 1.1, glucose of 202, calcium of 8.8, total protein of 7.7. Albumin of 0.5, total bilirubin 0.3, alk phos of 96, AST of 24, ALT of 31, lipase of 148, amylase of 43. TSH is 0.183. BNP of 0.08. CPK of 112. Troponin is less than 0.05. UA is negative. White blood cell count of 5.6, hemoglobin of 11.4, hematocrit of 34.2, and platelets of 184,000. D-dimer is 0.74. INR is 0.9. Other studies: Chest x-ray is normal. IMPRESSION: 1. This is a 56-year-old female with a history of type 2 diabetes, hypertension , hypothyroidism, and gastroesophageal reflux disease, presenting to the emergency department with complaints of palpitations, chest pain and shortness of breath secondary to supraventricular tachycardia at 235 beats per minute, possibly from iatrogenic hyperthyroidism versus supraventricular tachycardia. The emergency department was also concerned because D-dimer is elevated and they recommended ruling out a pulmonary embolism with imaging; however, patient is ALLERGIC TO CT SCAN DYE and therefore, a V/Q scan will be done in the morning. PLAN: 1. Cardiac: Supraventricular tachycardia. The emergency department had spoken with Dr. Martin from Cardiology, who recommended metoprolol and aspirin. We will continue this as an inpatient then patient will need to follow up with Cardiology as an outpatient. Hypertension. We will continue home medications at this time. 2. Endocrine: The patient possibly has iatrogenic hyperthyroidism. Free T3 and T4 are currently pending. Type 2 diabetes. We will continue home medications at this time. 3. Gastrointestinal: Gastroesophageal reflux disease. Continue home medications at this time. 4. Respiratory: D-dimer was elevated in the emergency department; physician is concerned the patient may have a pulmonary embolism. We will plan on V/Q scan in the morning and she has been therapeutically dosed with Lovenox for the meantime. 5. Prophylaxis: The patient is eating and is on therapeutic dosing of Lovenox. 6. CODE STATUS: FULL CODE.
[2016-06-05] MEDS ORDERED: LISINOPRIL10 MG PO (04:01)
[2016-06-05] MEDS ORDERED: ARMOUR THYROID90 MG PO (04:01)
[2016-06-05] MEDS ORDERED: NOVOLIN NP100 UNITS/ SC (04:03)
[2016-06-05] MEDS ORDERED: CVS OMEPRAZOLE20 MG PO (04:04)
[2016-06-05] MEDS ORDERED: COLACE100 MG PO (04:05)
[2016-06-05] MEDS ORDERED: VITAMIN E200 UNIT PO (04:06)
[2016-06-05] MEDS ORDERED: MAGNESIUM CITRATE PO (04:06)
[2016-06-05] MEDS ORDERED: VITAMIN C500 M1 PO (04:07)
[2016-06-05] MEDS ORDERED: VITAMIN D-31000 UNIT PO (04:07)
[2016-06-05 04:27] VITALS: BP 148/71
[2016-06-05 07:09] VITALS: BP 132/61
--- NOTE | 2016-06-05 08:36 | ED DISCHARGE INSTRUCTIONS ---
Patient: ROJELIO ANDERSON General Instructions [facility] VisitID: [id number] [address] [place] [address] 56y, F Registration Date/Time: 06/04/2016 Paroxysmal supraventricular tachycardia. Abnormal tests: (elevated d-dimer). Hypothyroidism (with apparent supratherapeutic dosing of her [place] thyroid). (Electronically signed by Joseph Chapin MD 06/05/2016 8:36)
--- NOTE | 2016-06-05 08:36 | ED MAR SUMMARY ---
..... Medication Administration Record [facility] [address] [place] [address] Patient: ROJELIO ANDERSON Visit ID: [id number] 56y, F Weight: 95.7 kg Height/Length: 65 in BMI: 35.2 ALLERGIES: Codeine, Penicillins, CONTRAST DYE Given 21:40 06/04/2016 Janet Mirza RBertoNBerto Medication Administered: ASPIRIN [PO], Dose: 325 mg Tablets PO. Medication Ordered: Aspirin PO 325 mg (NOW). Given 03:21 06/05/2016 Janet Mirza RBertoNBerto Medication Administered: LOVENOX [SUBCUTANEOUS] (ENOXAPARIN SODIUM), Dose: 100 mg Subcutaneous. Medication Ordered: Lovenox Subcut 1 mg/kg (HIGH ALERT MEDICATION, NOW). Given 03:55 06/05/2016 Janet Mirza RBertoN. Medication Administered: PROTONIX 40MG [IVP] (PANTOPRAZOLE SODIUM), Dose: 40 mg IVP over 15 minute(s), In: NS 50 mL, Site: #1. Medication Ordered: Protonix IVP 40mg 40 mg (Mix in NS 10ml over 2min).
--- NOTE | 2016-06-05 08:36 | ED MED RECONCILIATION SUMMARY ---
Patient: ROJELIO ANDERSON Medication Reconciliation Report [facility] VisitID: [id number] [address] [place] [address] 56y, F Registration Date/Time: 06/04/2016 Weight: 95.7 kg Height/Length: 65 in. BMI: 35.2 ALLERGIES: Codeine, CONTRAST DYE, Penicillins The patient's Home Medications are listed below: THE FOLLOWING MEDICATIONS NEED TO BE RECONCILED: [place] Thyroid Oral Colestid Oral Lisinopril Oral NovoLIN 70/30 Subcutaneous Omeprazole Oral The source(s) of the original Home Medication information: Not obtained. The following Medications were given to the patient in the Emergency Department: Aspirin [PO] PO 325 mg, administered: 06/04/2016 9:40:00 PM Lovenox [Subcutaneous] Subcutaneous 100 mg, administered: 06/05/2016 3:21:00 AM PROTONIX 40MG [IVP] IVP 40 mg diluted in NS 50 mL, administered: 06/05/2016 3:55:00 AM The following Medications were prescribed to the patient: None.
--- NOTE | 2016-06-05 08:36 | ED MAR SUMMARY ---
..... Medication Administration Record [facility] [address] [place] [address] Patient: ROJELIO ANDERSON Visit ID: [id number] 56y, F Weight: 95.7 kg Height/Length: 65 in BMI: 35.2 ALLERGIES: Codeine, Penicillins, CONTRAST DYE Given 21:40 06/04/2016 Janet Mirza RBertoNBerto Medication Administered: ASPIRIN [PO], Dose: 325 mg Tablets PO. Medication Ordered: Aspirin PO 325 mg (NOW). Given 03:21 06/05/2016 Janet Mirza RBertoNBerto Medication Administered: LOVENOX [SUBCUTANEOUS] (ENOXAPARIN SODIUM), Dose: 100 mg Subcutaneous. Medication Ordered: Lovenox Subcut 1 mg/kg (HIGH ALERT MEDICATION, NOW). Given 03:55 06/05/2016 Janet Mirza RBertoN. Medication Administered: PROTONIX 40MG [IVP] (PANTOPRAZOLE SODIUM), Dose: 40 mg IVP over 15 minute(s), In: NS 50 mL, Site: #1. Medication Ordered: Protonix IVP 40mg 40 mg (Mix in NS 10ml over 2min).
--- NOTE | 2016-06-05 08:36 | ED DISCHARGE INSTRUCTIONS ---
Patient: ROJELIO ANDERSON General Instructions [facility] VisitID: [id number] [address] [place] [address] 56y, F Registration Date/Time: 06/04/2016 Paroxysmal supraventricular tachycardia. Abnormal tests: (elevated d-dimer). Hypothyroidism (with apparent supratherapeutic dosing of her [place] thyroid). (Electronically signed by Joseph Chapin MD 06/05/2016 8:36)
--- NOTE | 2016-06-05 08:36 | ED MED RECONCILIATION SUMMARY ---
Patient: ROJELIO ANDERSON Medication Reconciliation Report [facility] VisitID: [id number] [address] [place] [address] 56y, F Registration Date/Time: 06/04/2016 Weight: 95.7 kg Height/Length: 65 in. BMI: 35.2 ALLERGIES: Codeine, CONTRAST DYE, Penicillins The patient's Home Medications are listed below: THE FOLLOWING MEDICATIONS NEED TO BE RECONCILED: [place] Thyroid Oral Colestid Oral Lisinopril Oral NovoLIN 70/30 Subcutaneous Omeprazole Oral The source(s) of the original Home Medication information: Not obtained. The following Medications were given to the patient in the Emergency Department: Aspirin [PO] PO 325 mg, administered: 06/04/2016 9:40:00 PM Lovenox [Subcutaneous] Subcutaneous 100 mg, administered: 06/05/2016 3:21:00 AM PROTONIX 40MG [IVP] IVP 40 mg diluted in NS 50 mL, administered: 06/05/2016 3:55:00 AM The following Medications were prescribed to the patient: None.
[2016-06-05 10:56] VITALS: BP 122/50
--- NOTE | 2016-06-05 13:51 | DIAGNOSTIC IMAGING REPORT ---
PROCEDURE: NM PULMONARY PERFUSION W/VENT INDICATION: Assess for pulmonary embolus. Chest pain. TECHNIQUE: 47 mCi of technetium-99m DTPA was aerosolized and inhaled. 6 mCi technetium-99m MAA was injected intravenously. Ventilation and perfusion images were obtained in the AP, PA, right lateral, left lateral, AUGUSTIN, HEBREW, RPO and LPO positions. COMPARISON: Comparison is made to chest x-ray on 06/04/2016. FINDINGS: Ventilation and perfusion are within normal limits. No evidence of pulmonary embolus. IMPRESSION: 1. Normal nuclear medicine lung scan. No evidence of pulmonary embolus. 2. Findings called to the floor.
--- NOTE | 2016-06-05 13:51 | DIAGNOSTIC IMAGING REPORT ---
PROCEDURE: NM PULMONARY PERFUSION W/VENT INDICATION: Assess for pulmonary embolus. Chest pain. TECHNIQUE: 47 mCi of technetium-99m DTPA was aerosolized and inhaled. 6 mCi technetium-99m MAA was injected intravenously. Ventilation and perfusion images were obtained in the AP, PA, right lateral, left lateral, AUGUSTIN, HUNGARIAN, RPO and LPO positions. COMPARISON: Comparison is made to chest x-ray on 06/04/2016. FINDINGS: Ventilation and perfusion are within normal limits. No evidence of pulmonary embolus. IMPRESSION: 1. Normal nuclear medicine lung scan. No evidence of pulmonary embolus. 2. Findings called to the floor.
[2016-06-05 14:09] VITALS: BP 114/51
[2016-06-05] MEDS ORDERED: ATIVAN0.5 MG PO (14:45)
[2016-06-05] MEDS ORDERED: TOPROL XL50 MG PO (14:45)
--- NOTE | 2016-06-05 14:49 | Provider's Discharge Care Plan ---
Problem, Goal, Plan Problem List 1. SVT (supraventricular tachycardia) Goals: Improve disease control, Prevent disease progress Instructions: Follow up as directed, Take meds as directed, Follow up with your family physician to schedule evaluation by cardiology. 2. Insomnia Goals: Improve disease control, Prevent disease progress Instructions: Follow up as directed, Take meds as directed
--- NOTE | 2016-06-05 14:53 | Discharge Summary ---
Discharge Summary Report Admit Date 06/05/16 Discharge Date 06/05/16 Admission Diagnosis 1. SVT Discharge Diagnosis 1. SVT Brief History The patient is a 56-year-old female with a significant past medical history of hypothyroidism, hypertension, diabetes mellitus who presented to [facility] emergency department secondary to complaints of palpitations/rapid heart rate. [facility] ER evaluation was consistent with SVT. Secondary to the above, the patient was admitted by Tavia Mckeon M.D. for further evaluation and treatment. For other history present illness, past medical history, family history, social history, review of systems, and admission physical examination please see the patient's history and physical examination and ER visit note in the patient's medical record. Hospital Course The following problems and their management were noted during the patient's hospitalization: 1. SVT The patient was admitted with history of SVT. She exhibited no further SVT throughout her hospitalization. Cardiac consultation via phone was obtained with Dr. Brumfield who recommended beta angelo therapy. The patient was placed on Toprol-XL 50 mg 1 by mouth daily on discharge. She will follow-up with her PCP next week for scheduling a follow-up evaluation by cardiology as necessary. General Appearance Alert, Oriented X3, Cooperative, No acute distress Lungs Clear to auscultation Cardiovascular Regular Rate, Normal S1, Normal S2 Neurological Grossly normal Psych/Mental Status Mental status NL, Mood NL Lab/Imaging Laboratory Tests 06/05 06/04 06/04 06/04 0528 2253 2200 2200 Chemistry Plasma Sodium (136 - 145 mmol/L) 144 142 Plasma Potassium (3.5 - 5.1 mmol/L) 3.7 3.7 Plasma Chloride (98 - 107 mmol/L) 111 107 CO2 (Enzymatic) (21 - 32 mmol/L) 23 24 BUN (7 - 18 mg/dL) 19 24 Creatinine (0.6 - 1.3 mg/dL) 0.9 1.1 Est GFR ( Amer) (mL/min) >60 >60 Est GFR (Non-Af Amer) (mL/min) >60 54.22 Glucose (70 - 110 mg/dL) 123 202 Plasma Calcium (8.5 - 10.1 mg/dL) 8.5 8.8 Total Bilirubin (0.0 - 1.0 mg/dL) 0.3 AST (15 - 37 U/L) 24 ALT (12 - 78 U/L) 31 Alkaline Phosphatase (46 - 116 U/L) 96 Creatine Kinase (24 - 260 U/L) 112 Troponin (0.00 - 1.5 ng/mL) <0.05 B-Natriuretic Peptide (5 - 100 pg/ml) 80.8 Total Protein (6.4 - 8.2 g/dL) 7.7 Albumin (3.3 - 5.0 g/dL) 3.5 Amylase (25 - 115 U/L) 43 Lipase (73 - 393 U/L) 148 Free T4 Calculated (0.78 - 4.13 ng/dL) 0.92 Free T3 pg/mL (2.91 - 4.70 pg/mL) 2.7 TSH 3rd Generation (0.30 - 3.74 uIU/mL) 0.183 Coagulation INR (0.8 - 1.2) 0.9 APTT (24 - 34 SECONDS) 27 D-Dimer, Quantitative (0.27 - 0.52 ug/mLFEU) 0.74 Hematology WBC (4.5 - 11.5 K/uL) 6.1 5.6 RBC (4.00 - 5.20 M/uL) 3.62 4.02 Hgb (12.0 - 16.0 gm/dL) 10.3 11.4 Hct (36.0 - 46.0 %) 30.9 34.2 MCV (80 - 100 fL) 85 85 MCH (26 - 34 pg) 29 28 RDW (11.6 - 14.8 %) 15.1 15.0 Neut % (Auto) (50 - 75 %) 58.9 69.5 Lymph % (Auto) (25 - 40 %) 30.2 22.7 [place] % (Auto) (3 - 14 %) 8.1 5.7 Eos % (Auto) (0 - 4 %) 2.1 1.4 Baso % (Auto) (0 - 2 %) 0.7 0.7 Plt Count, EDTA (150 - 400 K/uL) 183 184 PUBS MCHC (31 - 37 g/dL) 33 33 06/04 2138 Urines Urine Color YELLOW Urine Appearance CLEAR Urine pH (5.0 - 8.0) 7.0 Ur Specific [place] (1.010 - 1.030) 1.010 Urine Protein (NEGATIVE) TRACE Urine Ketones (NEGATIVE) NEGATIVE Urine Blood (NEGATIVE) NEGATIVE Urine Nitrite (NEGATIVE) NEGATIVE Urine Bilirubin (NEGATIVE) NEGATIVE Urine Urobilinogen (0.2 - 1.0 EU/dL) 0.2 Ur Leukocyte Esterase (NEGATIVE) TRACE Urine RBC (0 - 1 rbc/hpf) 0-1 Urine WBC (0 - 1 wbc/hpf) 1-3 Ur Epithelial Cells (0 - 5 EPI/hpf) 0-1 Urine Bacteria (NONE SEEN) FEW (1+) Urine Glucose (NEGATIVE) NEGATIVE Urine Comment CULTURE INDICATED Microbiology Date/Time Procedure - Status Source Growth 06/04 2137 Urine Culture - RES URINE CC Discharge Instructions/Meds For other recommendations regarding discharge diet, activity, followup, and discharge medications please see the patient's discharge instructions. Discharge condition: Good, improved Greater than 30 min. was spent in the patient's discharge preparation including discharge interview and physical examination, progress note, discharge instructions, and discharge summary The patient was interviewed and examined on the day of discharge.
== END 2016-06-05 15:09 | disposition home or self-care (01) ==
LOC: ED SRH 21:29 → TRANS SRH 06-05 00:38 → ACUTE2 SRH 06-05 00:38
PROVIDERS: ADMIT Family Medicine
DX: I47.1 Supraventricular tachycardia (principal); R07.9 Chest pain, unspecified; R79.89 Other specified abnormal findings of blood chemistry; E11.8 Type 2 diabetes mellitus with unspecified complications; Z79.4 Long term (current) use of insulin; K21.9 Gastro-esophageal reflux disease without esophagitis; Z91.041 Radiographic dye allergy status
CPT/HCPCS: 29230; 29251; 90004; 90047; 90074; 90098; 90100; 90469; 90616; 90648; 91023; 91320; 91556; 92235; 92530; 92610; 93140; 94001; 94060; 95059

== ENCOUNTER 2016-06-07 12:39 | Outpatient (CLI) | payer OTHER ==
[~2016-06-07 12:39] MED LIST: ARMOUR THYROID90 MG PO; ATIVAN0.5 MG PO; COLACE100 MG PO; CVS OMEPRAZOLE20 MG PO; LISINOPRIL10 MG PO; MAGNESIUM CITRATE PO; NOVOLIN NP100 UNITS/ SC; TOPROL XL50 MG PO; VITAMIN C500 M1 PO; VITAMIN D-31000 UNIT PO; VITAMIN E200 UNIT PO
--- NOTE | 2016-06-07 14:23 | DIAGNOSTIC IMAGING REPORT ---
PROCEDURE: MG BILATERAL SCREENING W/CAD INDICATION: SCREENING TECHNIQUE: Bilateral CC and MLO digital views. COMPARISON: Comparison is made to prior studies from [facility] ([facility]) including screening mammogram (08/27/2014), bilateral diagnostic mammogram and ultrasound (07/20/2013), screening mammogram (2013). Comparison is also made to prior studies from [facility] on 2012 and 02/15/2011. FINDINGS: Computer-aided detection applied. Mildly dense with a few dystrophic calcifications. There are stable bilateral breast nodules consistent with fibroadenomas or intramammary lymph nodes. IMPRESSION: 1. Negative mammogram with stable bilateral nodular changes. RESULT CODE: 2- Benign finding(s). A. A negative report should not delay biopsy if a dominant or clinically suspicious mass is present. 10-15% of cancers are not identified by x-ray. B. A negative report may reinforce clinical impression. C. Adenosis and dense breasts may obscure an underlying neoplasm. D. False positive reports average 6-10%. E.. A yearly screening mammogram is recommended. A reminder letter will be scheduled.
--- NOTE | 2016-06-07 14:23 | DIAGNOSTIC IMAGING REPORT ---
PROCEDURE: MG BILATERAL SCREENING W/CAD INDICATION: SCREENING TECHNIQUE: Bilateral CC and MLO digital views. COMPARISON: Comparison is made to prior studies from [facility] ([facility]) including screening mammogram (08/27/2014), bilateral diagnostic mammogram and ultrasound (07/20/2013), screening mammogram (2013). Comparison is also made to prior studies from [facility] on 2012 and 02/15/2011. FINDINGS: Computer-aided detection applied. Mildly dense with a few dystrophic calcifications. There are stable bilateral breast nodules consistent with fibroadenomas or intramammary lymph nodes. IMPRESSION: 1. Negative mammogram with stable bilateral nodular changes. RESULT CODE: 2- Benign finding(s). A. A negative report should not delay biopsy if a dominant or clinically suspicious mass is present. 10-15% of cancers are not identified by x-ray. B. A negative report may reinforce clinical impression. C. Adenosis and dense breasts may obscure an underlying neoplasm. D. False positive reports average 6-10%. E.. A yearly screening mammogram is recommended. A reminder letter will be scheduled.
== END 2016-06-07 23:00 | disposition home or self-care (01) ==
LOC: MAM SRH 12:39
DX: Z12.31 Encounter for screening mammogram for malignant neoplasm of breast (principal)

== ENCOUNTER 2016-08-26 13:03 | Outpatient (CLI) | payer OTHER | END 2016-08-26 23:00 | disposition home or self-care (01) | LOC: LAB SRH 13:03 | DX: D64.9 Anemia, unspecified (principal) | CPT/HCPCS: 90074; 92710; 99777 ==